=== PATIENT | female | born 1940 | race Caucasian/White ===

== ENCOUNTER 2023-04-06 12:35 | Emergency (ER) | payer MEDICARE ==
[2023-04-06 15:00] LABS: #Eosinphils 0.2 thou/uL (0.0-0.7); #Monocytes 0.4 thou/uL (0.11-0.59); #Neutrophils 3.2 thou/uL (1.40-6.50); %Basophils 0.7 % (0.0-1.0); %Eosinophils 2.8 % (0.0-10.0); %Lymphocytes 35.8 % (21.0-51.0); %Monocytes 6.7 % (0.0-10.0); %Neutrophils 53.8 % (42.0-75.0); Hematocrit 40.3 % (36.0-47.0); Hemoglobin 13.2 g/dL (12.0-16.0); Mean Corpuscular HGB CONC 32.8 g/dL (32.0-36.0); Mean Corpuscular Volume 91.6 fl (78.0-98.0); Mean Platelet Volume 8.8 fL (7.4-10.4); Platelet Count 230 10x3/uL (130-400); RBC Distribution Width 13.7 % (11.5-14.5)
[2023-04-06 15:27] LABS: Troponin I Less than 0.010 ng/mL (< 0.028)
[2023-04-06 15:29] LABS: ALT (SGPT) 16 U/L (8-55); AST (SGOT) 23 U/L (5-34); Alkaline Phosphatase 83 U/L (40-110); Anion Gap 15 mmol/L (10-20); BUN (Urea Nitrogen) 22 mg/dL (9.8-20.1); Bilirubin, Total 0.4 mg/dL (0.2-1.2); Calc. Creatinine Clearance 0 mL/min (70-130); Calcium 9.5 mg/dL (7.8-10.44); Carbon Dioxide 28 mmol/L (23-31); Chloride 104 mmol/L (98-107); Estimated GFR 87; Globulin 2.6 g/dL (2.4-3.5); Glucose 89 mg/dL (83-110); Potassium 3.8 mmol/L (3.5-5.1); Protein, Total 6.6 g/dL (5.8-8.1); Sodium 143 mmol/L (136-145)
[2023-04-06] MEDS ORDERED: Aspirin Chewable 81 MG TAB ONE (16:48)
[2023-04-06 17:27] LABS: Troponin I Less than 0.010 ng/mL (< 0.028)
== END 2023-04-06 18:21 | disposition home or self-care (01) ==
LOC: ERS 12:35
DX: R07.9 Chest pain, unspecified (principal); J44.9 Chronic obstructive pulmonary disease, unspecified
CPT/HCPCS: 36415; 71045; 80053; 83880; 84484; 85025; 93005

== ENCOUNTER 2023-05-03 10:00 | Inpatient (IN) | payer MEDICARE ==
[2023-05-03 11:27] LABS: Bilirubin Neg (Negative); Blood, Urine 10 (Negative); Clarity Slightly Cloudy (Clear); Glucose, Urine (Dipstick) Normal (Negative); Ketone, Urine Negative (Negative); Leukocyte 25 (Negative); Nitrite Positive (Negative); Protein, Urine (Dipstick) 15 mg/dl (Neg-Trace); Urobilinogen Normal mg/dL (Less than 2)
[2023-05-03 11:29] LABS: Hematocrit 42.9 % (34.9-44.5); Hemoglobin 14.1 g/dL (12.0-15.5); Mean Corpuscular HGB CONC 32.9 g/dL (32.0-36.0); Mean Corpuscular Volume 91.3 fl (81.6-98.3); Mean Platelet Volume 9.4 fl (7.4-10.4); Platelet Count 267 10x3/uL (150-450); RBC Distribution Width 13.9 % (11.5-14.5)
[2023-05-03 12:05] LABS: ALT (SGPT) 14 U/L (8-55); AST (SGOT) 23 U/L (5-34); Alkaline Phosphatase 62 U/L (40-110); Anion Gap 15 mmol/L (10-20); BUN (Urea Nitrogen) 26 mg/dL (9.8-20.1); Bilirubin, Total 0.4 mg/dL (0.2-1.2); Calc. Creatinine Clearance 70 mL/min (70-130); Calcium 9.6 mg/dL (7.8-10.44); Carbon Dioxide 24 mmol/L (23-31); Chloride 109 mmol/L (98-107); Estimated GFR 89; Glucose 92 mg/dL (83-110); Potassium 4.3 mmol/L (3.5-5.1); Sodium 144 mmol/L (136-145)
[2023-05-03 12:07] LABS: INR-International Normal Ratio 1.3; PTT 34.2 sec (22.0-33.0); Prothrombin Time 13.4 sec (9.5-12.1)
[2023-05-09] MEDS ORDERED: Ciprofloxacin Lactate/D5W 400 mg/200 ml Premix ONE (08:48)
[2023-05-09] MEDS ORDERED: Clindamycin/D5W 900 mg/50 ml Premix Bag ONE (08:48)
[2023-05-09] MEDS ORDERED: Sevoflurane 250 ML INH ANEST BOTTLE ONE (10:15)
[2023-05-09] MEDS ORDERED: Albuterol HFA (OR) 200 PUFF INH ONE ×2 (10:24→10:28)
[2023-05-09] MEDS ORDERED: Ondansetron PF 4 MG/2 ML Vial ONE (10:28)
[2023-05-09] MEDS ORDERED: Dexamethasone 20 MG/5 ML VIAL ONE (10:28)
[2023-05-09] MEDS ORDERED: Rocuronium Bromide 10 MG/ML (10ML VIAL) ONE (10:28)
[2023-05-09] MEDS ORDERED: Lidocaine 1% PF 5 ML VIAL ONE (10:28)
[2023-05-09] MEDS ORDERED: Labetalol HCl 100 MG/20 ML VIAL ONE (10:28)
[2023-05-09] MEDS ORDERED: PROPOFOL 200 MG/20 ML VIAL ONE (10:28)
[2023-05-09] MEDS ORDERED: SUGAMMADEX SODIUM 200 MG/2 ML VIAL ONE (10:29)
[2023-05-09] MEDS ORDERED: fentaNYL 50 mcg/mL 1 mL Vial ONE ×2 (10:29→10:41)
[2023-05-09] MEDS ORDERED: Protamine Sulfate 50 MG/5 ML VIAL ONE (11:47)
[2023-05-09] MEDS ORDERED: Acetaminophen 325 MG TAB PO PRN ×2 (13:15→14:10)
[2023-05-09] MEDS ORDERED: Iopamidol 370 76% 100 ML VIAL ONE (14:29)
[2023-05-09] MEDS: Baclofen 10 MG TAB PO SCH ×2 (18:00→20:18)
[2023-05-09 18:32] VITALS: BMI 23.7
[2023-05-10 05:27] LABS: #Monocytes 0.4 thou/uL (0.11-0.59); %Basophils 0.2 % (0.0-1.0); %Lymphocytes 16.7 % (21.0-51.0); %Monocytes 5.7 % (0.0-10.0); %Neutrophils 76.9 % (42.0-75.0); Hematocrit 38.9 % (36.0-47.0); Hemoglobin 12.8 g/dL (12.0-16.0); Mean Corpuscular HGB CONC 32.9 g/dL (32.0-36.0); Mean Corpuscular Hemoglobin 30.2 pg (27.0-31.0); Mean Corpuscular Volume 91.7 fl (78.0-98.0); Platelet Count 209 10x3/uL (130-400); RBC Distribution Width 14.1 % (11.5-14.5); Red Blood Cell (RBC) Count 4.24 mill/uL (4.20-5.40); White Blood Cell (WBC) Count 6.5 10x3/uL (4.8-10.8)
[2023-05-10 05:59] LABS: Anion Gap 15 mmol/L (10-20); BUN (Urea Nitrogen) 25 mg/dL (9.8-20.1); Calc. Creatinine Clearance 59 mL/min (70-130); Calcium 9.5 mg/dL (7.8-10.44); Carbon Dioxide 26 mmol/L (23-31); Chloride 105 mmol/L (98-107); Estimated GFR 74; Glucose 121 mg/dL (83-110); Potassium 4.7 mmol/L (3.5-5.1); Sodium 141 mmol/L (136-145)
[2023-05-10] MEDS ORDERED: Ipratropium/Albuterol 3 ML NEB NEB SCH (06:00)
[2023-05-10] MEDS ORDERED: Mometasone 100 MCG HFA INHALER (RT USE) INH SCH (06:30)
[2023-05-10 07:55] VITALS: BP 117/56; TEMP 98.1
[2023-05-10] MEDS ORDERED: Amiodarone 200 MG TAB PO SCH (09:00)
[2023-05-10] MEDS ORDERED: Metoprolol Tartrate 25 MG TAB PO SCH (09:00)
[2023-05-10] MEDS ORDERED: Multivit, Therapeutic 1 TAB PO SCH (09:00)
[2023-05-10] MEDS ORDERED: Sertraline 25 MG TAB PO SCH (09:00)
[2023-05-10] MEDS ORDERED: Rivaroxaban 10 MG TAB PO SCH (09:00)
[2023-05-10] MEDS ORDERED: Ferrous Sulfate 325 MG TAB PO SCH (09:00)
[2023-05-10] MEDS ORDERED: Aspirin Chewable 81 MG TAB PO SCH (09:00)
[2023-05-10] MEDS ORDERED: [UNRECOGNIZED DRUG - OTHER] PO SCH (09:00)
[2023-05-10] MEDS ORDERED: Midodrine HCl 5 MG TAB PO SCH (09:00)
[2023-05-10] MEDS: Baclofen 10 MG TAB PO SCH (09:06)
== END 2023-05-10 10:45 | disposition home or self-care (01) | DRG 274 ==
LOC: SURG A 05-09 07:21 → 2SW 05-09 16:40
PROVIDERS: ADMIT Internal Medicine Cardiovascular Disease; ATTEND Internal Medicine Cardiovascular Disease
PROC: 02L73CK Occlusion of Left Atrial Appendage with Extraluminal Device, Percutaneous Approach (ICD-10-PCS; principal; 2023-05-09)
PROC: B245ZZ4 Ultrasonography of Left Heart, Transesophageal (ICD-10-PCS; 2023-05-09)
DX: I48.0 Paroxysmal atrial fibrillation (principal); Z88.0 Allergy status to penicillin; Z79.899 Other long term (current) drug therapy; Z79.82 Long term (current) use of aspirin; Z91.81 History of falling; Z86.73 Personal history of transient ischemic attack (TIA), and cerebral infarction without residual deficits
CPT/HCPCS: 33340; 36415; 80048; 80053; 81003; 85025; 85027; 85347; 85610; 85730; 86850; 86900; 86901; 93306; 93312; 94640; C1759; C1760; C1894; J0744; J1100; J2405; J2704; J2720; J3010; J3490; J7620; Q9967

== ENCOUNTER → 2023-07-06 | Day surgery (SDC) | payer MEDICARE ==
[2023-06-30 11:15] VITALS: BMI 22.6
[2023-06-30 12:24] LABS: Hematocrit 40.6 % (34.9-44.5); Hemoglobin 13.7 g/dL (12.0-15.5); Mean Corpuscular HGB CONC 33.7 g/dL (32.0-36.0); Mean Corpuscular Hemoglobin 31.1 pg (27.0-33.0); Mean Corpuscular Volume 92.1 fl (81.6-98.3); Mean Platelet Volume 9.2 fl (7.4-10.4); Platelet Count 251 10x3/uL (150-450); RBC Distribution Width 13.8 % (11.5-14.5); Red Blood Cell (RBC) Count 4.41 10x6/uL (3.90-5.03); White Blood Cell (WBC) Count 6.2 10x3/uL (3.5-10.5)
[2023-06-30 12:36] LABS: INR-International Normal Ratio 1.2; PTT 36.2 sec (22.0-33.0); Prothrombin Time 12.7 sec (9.5-12.1)
[2023-06-30 12:53] LABS: Anion Gap 12 mmol/L (10-20); BUN (Urea Nitrogen) 23 mg/dL (9.8-20.1); Calc. Creatinine Clearance 67 mL/min (70-130); Calcium 9.6 mg/dL (7.8-10.44); Carbon Dioxide 28 mmol/L (23-31); Chloride 102 mmol/L (98-107); Estimated GFR 88; Glucose 90 mg/dL (83-110); Potassium 4.2 mmol/L (3.5-5.1); Sodium 138 mmol/L (136-145)
[~2023-07-06] MED LIST: Lidocaine 1% PF 5 ML VIAL ONE; PROPOFOL 20 ML ONE
== END | disposition home or self-care (01) ==
LOC: SDC 06:09
PROVIDERS: ATTEND Internal Medicine Cardiovascular Disease
PROC: B246ZZ4 Ultrasonography of Right and Left Heart, Transesophageal (ICD-10-PCS; principal; 2023-07-06)
DX: I48.0 Paroxysmal atrial fibrillation (principal); I08.3 Combined rheumatic disorders of mitral, aortic and tricuspid valves; Z88.0 Allergy status to penicillin
CPT/HCPCS: 80048; 85027; 85610; 85730; 93312; J2704